=== PATIENT | female | born 1955 | race Two or more races ===

== ENCOUNTER 2022-09-16 09:53 | Outpatient (CLI) | payer OTHER | END 2022-09-16 09:57 | disposition home or self-care (01) | LOC: LAB 09:53 | PROVIDERS: ATTEND Urology | DX: N20.1 Calculus of ureter (principal); E11.9 Type 2 diabetes mellitus without complications ==

== ENCOUNTER 2022-09-19 07:07 | Outpatient (CLI) | payer OTHER | END 2022-09-19 07:11 | disposition home or self-care (01) | LOC: RAD 07:07 | PROVIDERS: ATTEND Urology | DX: E11.9 Type 2 diabetes mellitus without complications (principal); N20.1 Calculus of ureter ==

== ENCOUNTER 2022-09-19 10:48 | Outpatient (CLI) | payer OTHER | END 2022-09-19 10:53 | disposition home or self-care (01) | LOC: LAB 10:48 | PROVIDERS: ATTEND Urology | DX: N39.0 Urinary tract infection, site not specified (principal) ==